=== PATIENT | male | born 1990 | race American Indian/Alaskan Native ===

== ENCOUNTER 2019-01-20 01:56 | Emergency (ER) | payer OTHER ==
[2019-01-20] MEDS ORDERED: TYLENOL ONE (02:32)
[2019-01-20 02:35] VITALS: BP 136/80
[2019-01-20] MEDS ORDERED: TYLENOL PO ONE (02:37)
--- NOTE | 2019-01-20 03:20 | XRay Report ---
PROCEDURE: XR FOOT 2V RT HISTORY: Foreign body right foot FINDINGS: AP and lateral views of the right foot were acquired and demonstrate no fracture or malalig nment of the right foot. No foreign body is seen. IMPRESSION: No fracture is seen in the right foot This document is electronically signed by Chava Heredia MD., January 20 2019 03:17:38 AM ET
[2019-01-20] MEDS ORDERED: TYLENOL #3 PO ONE (03:31)
[2019-01-20] MEDS ORDERED: BOOSTRIX IM ONE (03:31)
--- NOTE | 2019-01-20 03:36 | Emergency Department Report ---
ED Extremity Problem HPI - General Chief complaint: Extremity Injury, Lower Stated complaint: NAIL IN FOOT Time Seen by Provider: 01/20/19 02:56 Source: patient Mode of arrival: Ambulatory Limitations: No Limitations - History of Present Illness Initial comments: Patient is a 28-year-old male who presents to the emergency room with complains of stepping on a nail with his right foot that occurred at 9:20 PM. He states he was wearing tennis shoes at the time. He states he has pain and swelling to the bottom of the right foot. He is unsure of his last tetanus immunization. He has been ambulatory with some discomfort. He does not report any numbness or weakness. He is able to move all toes. He denies any past medical history. He states he has an allergy to ibuprofen. He denies any daily medications. Severity scale (0 -10): 10 - Related Data Previous Rx's Medication Instructions Recorded Last Taken Type levoFLOXacin [Levaquin TAB] 500 mg PO QDAY 3 Days #3 tablet 01/20/19 Unknown Rx Allergies Allergy/AdvReac Type Severity Reaction Status Date / Time ibuprofen Allergy Angioedema Verified 01/20/19 02:07 ED Review of Systems ROS: Stated complaint: NAIL IN FOOT Other details as noted in HPI Comment: All other systems reviewed and negative ED Past Medical Hx - Past Medical History Previous Medical History?: No - Surgical History Past Surgical History?: Yes Additional Surgical History: Jaw and nose surgery - Social History Smoking Status: Current Every Day Smoker Substance Use Type: Alcohol - Medications Home Medications: Home Medications Medication Instructions Recorded Confirmed Last Taken Type levoFLOXacin [Levaquin TAB] 500 mg PO QDAY 3 Days #3 tablet 01/20/19 Unknown Rx ED Physical Exam - General Limitations: No Limitations General appearance: alert, in no apparent distress - Head Head exam: Present: atraumatic, normocephalic - Eye Eye exam: Present: normal appearance, PERRL - Neurological Exam Neurological exam: Present: alert, oriented X3 - Psychiatric Psychiatric exam: Present: normal affect, normal mood - Skin Skin exam: Present: warm, dry, other (small 0.5 cm abrasion to the plantar surface of the right foot, mild TTP over the abrasion, FROM of the right foot and toes, no surrounding erythema, 2+ dp and pt pulses, sensation intact, no foreign body visualized or palpable ) ED Course Vital Signs 01/20/19 02:31 Temperature 99.6 F Pulse Rate 98 H Respiratory 18 Rate Blood Pressure 136/80 O2 Sat by Pulse 97 Oximetry ED Medical Decision Making - Radiology Data Radiology results: report reviewed Ordering Physician: BRIANNE LUCIO MD Date of Service: 01/20/19 Procedure(s): XR foot 2V RT Accession Number(s): [id number] cc: BRIANNE LUCIO MD Fluoro Time In Minutes: PROCEDURE: XR FOOT 2V RT HISTORY: Foreign body right foot FINDINGS: AP and lateral views of the right foot were acquired and demonstrate no fracture or malalignment of the right foot. No foreign body is seen. IMPRESSION: No fracture is seen in the right foot This document is electronically signed by Chava Heredia MD., January 20 2019 03:17:38 AM ET Transcribed By: ELIDIA Dictated By: CHAVA HEREDIA MD Electronically Authenticated By: CHAVA HEREDIA MD Signed Date/Time: 01/20/19 0320 - Medical Decision Making Patient is a 28-year-old male who presents to the emergency room with complains of stepping on a nail with his right foot that occurred at 9:20 PM. He states he was wearing tennis shoes at the time. He states he has pain and swelling to the bottom of the right foot. He is unsure of his last tetanus immunization. He has been ambulatory with some discomfort. He does not report any numbness or weakness. He is able to move all toes. He denies any past medical history. He states he has an allergy to ibuprofen. He denies any daily medications. on exam: small 0.5 cm abrasion to the plantar surface of the right foot, mild TTP over the abrasion, FROM of the right foot and toes, no surrounding erythema, 2+ dp and pt pulses, sensation intact, no foreign body visualized or palpable. XR right foot: no fracture or malalignment of the right foot. No foreign body is seen. abrasion irrigated with saline and cleaned with betadine while in the ED. pt given prescription for levaquin due to wearing rubber soled shoes when puncture wound occurred. advised to please take medications as prescribed. Keep area clean and dry. may wash with soap and water and immediately dry. Follow- up with primary care doctor in the next 2-3 days for reevaluation. Return to the emergency room for any new or worsening symptoms. Critical care attestation.: If time is entered above; I have spent that time in minutes in the direct care of this critically ill patient, excluding procedure time. ED Disposition Clinical Impression: Nail wound of right foot Qualifiers: Encounter type: initial encounter Qualified Code(s): S91.331A - Puncture wound without foreign body, right foot, initial encounter Disposition: TO HOME OR SELFCARE Is pt being admited?: No Does the pt Need Aspirin: No Condition: Stable Instructions: Puncture Wound (ED) Additional Instructions: Please take medications as prescribed. Keep area clean and dry. may wash with soap and water and immediately dry. Follow-up with primary care doctor in the next 2-3 days for reevaluation. Return to the emergency room for any new or worsening symptoms. Prescriptions: levoFLOXacin [Levaquin TAB] 500 mg PO QDAY 3 Days #3 tablet Referrals: DURGA SALCIDO MD [Primary Care Provider] - 2-3 Days [facility] [Outside] - 2-3 Days [facility] [Outside] - 2-3 Days Forms: Work/School Release Form(ED) Time of Disposition: 03:37 Print Language: SLOVENIAN
== END 2019-01-20 03:59 | disposition home or self-care (01) ==
LOC: ED 01:56
DX: S91.331A Puncture wound without foreign body, right foot, initial encounter (principal); F17.200 Nicotine dependence, unspecified, uncomplicated; Z88.6 Allergy status to analgesic agent; X58.XXXA Exposure to other specified factors, initial encounter; Y93.89 Activity, other specified; Y92.89 Other specified places as the place of occurrence of the external cause; Y99.8 Other external cause status
CPT/HCPCS: 90471; 90715; 99283